=== PATIENT | female | born 1980 | race Caucasian/White ===

== ENCOUNTER 2024-02-14 13:19 | Emergency (ER) | payer OTHER, MEDICAID, SELFPAY ==
[2024-02-14 13:29] VITALS: BP 126/78; PULSE 115; RESP 16; TEMP 36.9; O2SAT 99; BMI 23.6
--- NOTE | 2024-02-14 13:58 | ED.UPPEXIN ---
HPI - Extremity Injury (Upper) <Shari Dexter PA-C - Last Filed: 02/14/24 21:01> General Chief Complaint: Extremity Injury, Upper Stated Complaint: unable to move left hand Time Seen by Provider: 02/14/24 13:58 History of Present Illness HPI narrative: Ms. Lopez is a pleasant 44-year-old female with a past medical history of scoliosis s/p numerous spine surgeries who presents to the emergency department for left hand numbness x 5 days. Patient reports about 5 days ago she slept on her left arm/laying on her side and when she woke up the left arm and hand had the sensation of pins and needles and she had difficulty extending the fingers on her left hand. Reports that the symptoms have persisted. She denies any severe pain but reports that she does have some soreness in the back left side of her neck. Reports she still has full range of motion of the left arm and left wrist but she has difficulty fully extending the fingers of her left hand. She still has sensation to touch of the left hand. She has not tried any alleviating measures and nothing makes it worse. She denies any trauma. Denies headache, visual disturbance, chest pain, fevers, confusion, dizziness. She does report sinus congestion for the last 3 weeks which she would like to be evaluated for. Related Data Previous Rx's Medication Instructions Recorded amoxicillin 875 mg-potassium 1 tab PO BID 5 days #10 tabs 02/14/24 clavulanate 125 mg tablet methylprednisolone 4 mg tablets in See Rx Instructions PO .COMPLEX 02/14/24 a dose pack (Medrol (Jae)) #21 ea Allergies Allergy/AdvReac Type Severity Reaction Status Date / Time No Known Drug Allergies Allergy Verified 02/14/24 13:28 Review of Systems <Shari Dexter PA-C - Last Filed: 02/14/24 21:01> Review of Systems ROS Unobtainable: All systems reviewed & are unremarkable except as noted in HPI and below Exam <Shari Dexter PA-C - Last Filed: 02/14/24 21:01> Narrative Exam Narrative: GENERAL: 44 year old patient appears stated age. Well-developed patient, in no acute distress. HEAD: Atraumatic. Normocephalic. EYES: Pupils equal round and reactive. Extraocular motions intact. No scleral icterus. No injection or drainage. ENT: Nasal congestion with maxillary sinus tenderness. NECK: Trachea midline. No midline tenderness to palpation of cervical spine. Mild tenderness to palpation of superior left side trapezius muscle. CARDIOVASCULAR: Regular rate and rhythm. RESPIRATORY: Clear to auscultation. Breath sounds equal bilaterally. No wheezes, rales, or rhonchi. EXTREMITIES: Full ROM L shoulder, elbow, wrist. When holding arms out, L wrist drop present that can be overcome with active wrist extension. Decreased active extension of all 5 fingers, full flexion. Equal BL sensation intact to light touch in the distribution of the median, ulnar, radial nerves. BACK: Nontender without deformity or crepitance. No flank tenderness. NEURO: AOx3. No facial asymmetry. No pronator drift. Steady gait. SKIN: No rash or erythema of visible areas Initial Vital Signs Initial Vital Signs: Vital Signs Temperature 98.5 F 02/14/24 13:29 Pulse Rate 115 H 02/14/24 13:29 Respiratory Rate 16 02/14/24 13:29 Blood Pressure 126/78 02/14/24 13:29 Pulse Oximetry 99 02/14/24 13:29 Oxygen Delivery Method Room Air 02/14/24 13:29 <Brisa Lee DO - Last Filed: 02/15/24 07:24> Initial Vital Signs Initial Vital Signs: Vital Signs Temperature 98.5 F 02/14/24 13:29 Pulse Rate 115 H 02/14/24 13:29 Respiratory Rate 16 02/14/24 13:29 Blood Pressure 126/78 02/14/24 13:29 Pulse Oximetry 99 02/14/24 13:29 Oxygen Delivery Method Room Air 02/14/24 13:29 Course <Shari Dexter PA-C - Last Filed: 02/14/24 21:01> Orders Ordered: Discontinued Medications Acetaminophen (Acetaminophen 325 Mg Tablet) 975 mg PO NOW ONE Stop: 02/14/24 14:37 Last Admin: 02/14/24 15:18 Dose: 975 mg Documented By: SPF Dexamethasone (Dexamethasone 10 Mg/Ml Vial) 10 mg IM NOW ONE Stop: 02/14/24 14:35 Last Admin: 02/14/24 15:18 Dose: 10 mg Documented By: SPF Ibuprofen (Ibuprofen 400 Mg Tablet) 400 mg PO NOW ONE Stop: 02/14/24 14:37 Last Admin: 02/14/24 15:19 Dose: 400 mg Documented By: SPF Consultations Consultation #1: Discussed case with orthopedic surgeon on-call Dr. Dixon. She recommends we send the patient home on a Medrol Dosepak and have the patient follow up promptly with an orthopedic surgeon such as Dr. Méndez who specializes in spine. Patient will benefit from outpt cervical MRI Time: 17:07 Vital Signs Vital signs: Vital Signs - 8 hr 02/14/24 13:29 02/14/24 17:16 Temperature 98.5 F Pulse Rate 115 H 99 H Respiratory Rate 16 16 Blood Pressure 126/78 120/85 Pulse Oximetry 99 99 Oxygen Delivery Method Room Air Room Air <Brisa Lee DO - Last Filed: 02/15/24 07:24> Orders Ordered: Discontinued Medications Acetaminophen (Acetaminophen 325 Mg Tablet) 975 mg PO NOW ONE Stop: 02/14/24 14:37 Last Admin: 02/14/24 15:18 Dose: 975 mg Documented By: SPF Dexamethasone (Dexamethasone 10 Mg/Ml Vial) 10 mg IM NOW ONE Stop: 02/14/24 14:35 Last Admin: 02/14/24 15:18 Dose: 10 mg Documented By: SPF Ibuprofen (Ibuprofen 400 Mg Tablet) 400 mg PO NOW ONE Stop: 02/14/24 14:37 Last Admin: 02/14/24 15:19 Dose: 400 mg Documented By: SUNITHA Vital Signs Vital signs: Vital Signs - 8 hr 02/14/24 13:29 02/14/24 17:16 Temperature 98.5 F Pulse Rate 115 H 99 H Respiratory Rate 16 16 Blood Pressure 126/78 120/85 Pulse Oximetry 99 99 Oxygen Delivery Method Room Air Room Air MDM - Extremity Injury (Upper) <Shari Dexter PA-C - Last Filed: 02/14/24 21:01> Lab Data Labs: Lab Results 02/14/24 Range/Units 14:40 Urine Test Negative (Negative) Urine Dip Bedside Urine Glucose Negative Bedside Urine Bilirubin - Negative Bedside Urine Ketone - Negative Urine Specific [place] 1.015 Bedside Urine Occult Blood - Negative Bedside Urine pH 7.5 Bedside Urine Protein - Negative Bedside Urine Urobilinogen - Negative Bedside Urine Nitrite - Negative Bedside Urine Leukocytes - Negative Esterase Imaging Data Cervical X-Ray: Radiologist's Impression: FINDINGS: Bones: No fractures or dislocations to the T1 level. The lateral masses of C1 appear intact on the odontoid view. No suspicious bony lesions. There is moderately severe to severe degenerative disc disease at C 4-5 and C5-6 and slightly less at C6-7 facet osteoarthritis is associated at each of these levels to the degree that significant spinal and foraminal stenosis likely is present. Soft tissues: No prevertebral soft tissue swelling. IMPRESSION: Degeneration to the degree from C4 through C7 that follow-up MR scanning may be warranted given the clinical history provided. Moderately severe to severe degenerative changes are found. [facility] Narrative Medical decision making narrative: 44-year-old female presents to the emergency department for left hand numbness x5 days. Differential diagnosis includes but is not limited to radial nerve palsy, cervical radiculopathy, Erb's palsy, carpal tunnel etc. On exam patient has left wrist drop that is able to be overcome and decreased extension strength of the left 5 fingers. She has some subjective pain in the left superior trapezius region with no midline cervical tenderness. Strong radial pulse BL and brisk cap refill of fingers. At this time we do not have CT imaging available therefore we will proceed with x-rays cervical spine and treat with 10 mg of Decadron. Imaging reveals degeneration to the degree from C4 through C7 that follow up MRI scanning may be warranted given the clinical history provided. Patient has moderately severe to severe degenerative changes are found. I discussed the findings with the orthopedic surgeon on-call including my concern for radial nerve palsy. The patient will benefit from outpatient MRI to urgently further evaluate her cervical spine. After shared decision-making with the patient and the service delivery management consultant, we will treat with Medrol Dosepak I also recommended ibuprofen/Tylenol if needed for pain. Patient additionally concerned with opaque nasal discharge sinus congestion for the last 3 weeks. She is afebrile. Given the duration of her sinus congestion, we will treat with Augmentin b.i.d. x5 days. Patient verbalized understanding of all information and is agreeable to follow up with Orthopedics. Discussed strict ER return precautions. Patient verbalized understanding of all information is stable for discharge at this time. <Brisa Lee, - Last Filed: 02/15/24 07:24> Lab Data Labs: Lab Results 02/14/24 Range/Units 14:40 Urine Test Negative (Negative) Urine Dip Bedside Urine Glucose Negative Bedside Urine Bilirubin - Negative Bedside Urine Ketone - Negative Urine Specific [place] 1.015 Bedside Urine Occult Blood - Negative Bedside Urine pH 7.5 Bedside Urine Protein - Negative Bedside Urine Urobilinogen - Negative Bedside Urine Nitrite - Negative Bedside Urine Leukocytes - Negative Esterase Discharge Plan Departure Patient Disposition: Home Clinical Impression: DDD (degenerative disc disease), cervical, Cervical radiculopathy Sinusitis, acute Qualifiers: Sinusitis location: other Recurrence: not specified as recurrent Qualified Code(s): J01.80 - Other acute sinusitis Instructions: DI for Cervical Radiculopathy Activity Restrictions/Additional Instructions: Please follow up with [facility], Dr. Zachary Méndez, for further management. Please call to schedule an appointment as soon as possible. Complete the full course of prescribed steroids and use 600 mg of ibuprofen and/or 1000 mg of Tylenol every 6 hours if needed for pain. Complete full course of antibiotics for sinus infection. Follow up with your primary care doctor and to return to the emergency room with any new or worsening symptoms. Prescriptions: New methylprednisolone [Medrol (Jae)] 4 mg tablets,dose pack See Rx Instructions .ROUTE .COMPLEX Qty: 21 0RF Rx Instructions: for 6 days amoxicillin-pot clavulanate 875-125 mg tablet 1 tab PO BID 5 Days Qty: 10 0RF Referrals: Miscellaneous,Doctor, MD [Primary Care Provider] - Stand Alone Forms: Patient Portal/API/Survey ED Sign-out <Brisa Lee DO - Last Filed: 02/15/24 07:24> Cosign ED Attending [place] Attestation: I was immediately available in the department for consultation.
--- NOTE | 2024-02-14 14:34 | DI.RAD.S_ITS ---
PROCEDURE: XR CERVICAL SPINE 2V OR 3V INDICATIONS: concern for cervical radiculoapthy TECHNIQUE: 3 view(s) of the cervical spine were acquired. COMPARISON: None. FINDINGS: Bones: No fractures or dislocations to the T1 level. The lateral masses of C1 appear intact on the odontoid view. No suspicious bony lesions. There is moderately severe to severe degenerative disc disease at C 4-5 and C5-6 and slightly less at C6-7 facet osteoarthritis is associated at each of these levels to the degree that significant spinal and foraminal stenosis likely is present. Soft tissues: No prevertebral soft tissue swelling. IMPRESSION: Degeneration to the degree from C4 through C7 that follow-up MR scanning may be warranted given the clinical history provided. Moderately severe to severe degenerative changes are found. Dictated by: Stuart Ramirez M.D. on 02/14/2024 at 14:58 Approved by: Stuart Ramirez M.D. on 02/14/2024 at 15:00
[2024-02-14] MEDS: DEXAMETHASONE 10 MG/ML VIAL IM (15:18)
[2024-02-14] MEDS: ACETAMINOPHEN 325 MG TABLET 975 MG PO (15:18)
[2024-02-14] MEDS: IBUPROFEN 400 MG TABLET PO (15:19)
[2024-02-14 17:16] VITALS: BP 120/85; PULSE 99; RESP 16; O2SAT 99
[2024-02-14 17:44] LABS: Pregnancy Test Urine Negative (Negative)
== END 2024-02-14 17:29 | disposition home or self-care (01) ==
PROVIDERS: Emergency Provider Physician Assistant
DX: M50.321 Other cervical disc degeneration at C4-C5 level (principal); M50.322 Other cervical disc degeneration at C5-C6 level; M50.323 Other cervical disc degeneration at C6-C7 level; M54.12 Radiculopathy, cervical region; J01.80 Other acute sinusitis
CPT/HCPCS: 72040; 81003; 81025; 96372; 99283; J1100

== ENCOUNTER 2024-04-29 08:01 | Outpatient (CLI) | payer OTHER, SELFPAY ==
--- NOTE | 2024-04-29 08:05 | DI.RAD.S_ITS ---
PROCEDURE: [place] INJECT SPINE FOR CT MYELO INDICATIONS: ULNAR NEUROPATHY COMPARISON: [facility], CT, CT CERVICAL MYELOGRAM, 04/29/2024, 8:52. TECHNIQUE: The indications, alternatives, benefits, risks, and complications of the procedure were explained to the patient. Written informed consent was obtained and placed in the chart. The patient was placed in a prone position on the fluoroscopy table, and a site was chosen for percutaneous access under fluoroscopic guidance. The skin was prepped and draped in a sterile fashion. A spinal needle was then used to enter the intrathecal space, with return of clear cerebrospinal fluid. Ten mL of Isovue M-300 were administered intrathecally under fluoroscopic visualization. The needle was then withdrawn, and a bandage applied to the puncture site. The patient was then placed in a Trendelenburg position to allow contrast migration up to the cervical spine. Fluoroscopic spot films were then acquired in various positions. FINDINGS: Postinjection films demonstrate normal overall caliber to the central spinal canal, without significant canal stenoses. Oblique images demonstrate no foraminal stenoses. Access level: L5-S1 Needle: Spinal needle. Medications: 1% lidocaine for local anaesthesia. Complications: None. Patient transferred to CT for subsequent CT myelogram. IMPRESSION: Successful fluoroscopically guided administration of iodinated contrast into the cervical spinal canal for CT myelogram. Dictated by: Boston Johnson M.D. on 05/01/2024 at 14:21 Approved by: Boston Johnson M.D. on 05/01/2024 at 14:22
[2024-04-29 08:20] VITALS: BP 124/81; PULSE 113; RESP 18; TEMP 37.3; O2SAT 97
--- NOTE | 2024-04-29 09:00 | DI.CT.S_ITS ---
PROCEDURE: CT CERVICAL MYELOGRAM INDICATIONS: ULNAR NEUROPATHY TECHNIQUE: After the administration of 10mL intrathecal contrast, 3 mm thick sections acquired from the skull base to the T1 level. Sagittal and coronal reformats were then constructed. For radiation dose reduction, the following was used: automated exposure control, adjustment of mA and/or kV according to patient size. COMPARISON: [facility], CR, XR CERVICAL SPINE 2V OR 3V, 02/14/2024, 14:42. [facility], RF, [place] INJECT SPINE FOR CT MYELO, 04/29/2024, 8:32. FINDINGS: Image quality: This examination is somewhat limited by quantum mottle artifact. Bones and alignment: No acute fractures. No suspicious bony lesions. Levoconvex cervical thoracic scoliotic curvature is seen. Soft tissues: No paraspinal masses. Prevertebral soft tissues are normal in thickness. Visualized neck vasculature appears normal in size. C2-C3: Normal appearance. C3-C4: Normal appearance. C4-C5: Moderate loss of disc height is seen. Vacuum disc phenomenon is seen at this level. Endplate irregularity and sclerosis can be seen. Moderate disc osteophyte complex is seen, with a mild central disc osteophyte protrusion. There is moderate right-sided and mild left-sided neural foraminal narrowing. Minimal central canal narrowing is seen. C5-C6: Moderate loss of disc height is seen. Moderate generalized disc osteophyte complex is seen. There is moderate right-sided and mild left-sided neural foraminal narrowing. No central canal narrowing is seen. C6-C7: No significant abnormality is seen. C7-T1: Normal appearance. At the T3-T4 level, there is moderate to severe disc space narrowing, with associated endplate irregularity and sclerosis. At this level, there is a mild disc bulge seen. No significant neural foraminal narrowing is seen. Minimal central canal narrowing is seen. Thoracic spine fixation hardware is partially seen. Miscellaneous: Visualized intracranial structures appear unremarkable. IMPRESSION: Cervical spine degenerative changes are seen, which are overall worst at the C4-C5 level. Focal degenerative change also seen at T3-T4 Thoracic spine fixation hardware partially seen. Dictated by: Moise Roldan M.D. on 04/29/2024 at 14:57 Approved by: Moise Roldan M.D. on 04/29/2024 at 15:01
[2024-04-29 09:05] VITALS: BP 94/57; PULSE 96; RESP 18; TEMP 37.4; O2SAT 96
[2024-04-29 09:35] VITALS: BP 91/52; PULSE 96; RESP 18; O2SAT 96
[2024-04-29 10:05] VITALS: BP 93/55; PULSE 94; RESP 16; O2SAT 94
[2024-04-29 10:35] VITALS: BP 98/58; PULSE 100; RESP 18; O2SAT 96
[2024-04-29 11:05] VITALS: BP 92/60; PULSE 94; RESP 16; TEMP 37.4; O2SAT 97
== END 2024-04-29 11:13 | disposition home or self-care (01) ==
PROVIDERS: Referring Provider Physician Assistant; Visit Provider Physician Assistant
DX: G56.22 Lesion of ulnar nerve, left upper limb (principal); M47.812 Spondylosis without myelopathy or radiculopathy, cervical region; M47.814 Spondylosis without myelopathy or radiculopathy, thoracic region; Z98.1 Arthrodesis status
CPT/HCPCS: 62284; 72126; 77003; Q9967